=== PATIENT | female | born 1970 | race Caucasian/White ===

== ENCOUNTER 2017-11-06 07:02 | Day surgery (SDC) | payer OTHER ==
[~2017-11-06 07:02] MED LIST: Lactated Ringers 1,000 ML IV SCH
[2017-11-06] MEDS ORDERED: Bupivacaine 0.25%/EPINEPHrine 1:200,000 30 ML SDV ONE (08:19)
[2017-11-06] MEDS ORDERED: Propofol 200 MG/20 ML SDV ONE (08:35)
[2017-11-06] MEDS ORDERED: fentaNYL 100 MCG/2 ML SDV ONE (08:35)
[2017-11-06] MEDS ORDERED: Midazolam 1 MG/ML 2 ML SDV ONE (08:35)
[2017-11-06] MEDS ORDERED: ceFAZolin 1 GM Vial ONE (09:10)
[2017-11-06] MEDS ORDERED: Bacitracin Oint 1 GM U/D Packet ONE (09:10)
[2017-11-06] MEDS ORDERED: Bupivacaine 0.25%/EPINEPHrine 1:200,000 30 ML SDV INJECT ONE (09:19)
--- NOTE | 2017-11-06 12:14 | OR ---
PREOPERATIVE DIAGNOSIS: Bothersome external and internal hemorrhoid, anterior quadrant. PROCEDURE PROPOSED: Excision of external and internal hemorrhoid, anterior quadrant. PROCEDURE DONE: Excision of external and internal hemorrhoid, anterior quadrant. LENS FABRICATING MACHINE TENDER: Haylee Taylor. INDICATION: This is a 47-year-old female bothered with significant external hemorrhoidal tissue with some internal component. It is felt that this was best served with surgical excision. TECHNIQUE: The patient was brought to the operative suite, given some MAC anesthesia per MANAGER CULINARY. The perianal area was then sterilely prepped and draped. After placing her in the lithotomy position, a perianal block was performed with 0.25% Marcaine with epinephrine. The external anal tag was significant externally in the anterior quadrant. Anal inspection revealed no other abnormalities in any other quadrant. There was a small internal component to this external hemorrhoid and I felt with that I would do an elliptical excision of the internal and external hemorrhoid en bloc. A Esquivel retractor was inserted after dilating the anus to 3 fingers. The skin was marked with a skin marker to elliptically excise the redundant tissue. This was performed in an elliptical fashion beginning externally and going internally to incorporate the internal hemorrhoid. This tissue was removed and submitted for pathologic examination. The mucosa was undermined bilaterally to facilitate the closure. The closure was performed by placing 1 subcutaneous suture externally to help bring the tissue back together. I then ran the anal mucosa by reapproximating it with a running 3-0 Vicryl suture beginning internally and bringing it out externally onto the skin. The Esquivel retractor was removed. It looked very good. There was good anal tone and some antibiotic ointment was applied and she was taken back to [facility] in good condition with minimal blood loss. SCM: 11/06/2017 09:21:48 MODL: 11/06/2017 12:04:35 /[id number]
== END 2017-11-06 10:24 | disposition home or self-care (01) ==
LOC: VM.SDS 07:02
PROVIDERS: ATTEND Surgery
DX: K64.4 Residual hemorrhoidal skin tags (principal); K64.8 Other hemorrhoids; F41.9 Anxiety disorder, unspecified; F32.9 Major depressive disorder, single episode, unspecified; G47.00 Insomnia, unspecified; Z98.890 Other specified postprocedural states; Z88.1 Allergy status to other antibiotic agents
CPT/HCPCS: J0690; J2250; J2704; J3010; J7120

== ENCOUNTER 2018-12-04 07:44 | Day surgery (SDC) | payer OTHER ==
[~2018-12-04 07:44] MED LIST changes: +Sodium Chloride 0.9% 10 ML Syringe FLUSH PRN
[2018-12-04] MEDS ORDERED: Propofol 200 MG/20 ML SDV ONE ×2 (08:40→08:41)
[2018-12-04] MEDS ORDERED: fentaNYL 100 MCG/2 ML SDV ONE (08:40)
--- NOTE | 2018-12-04 12:02 | OR ---
PREOPERATIVE DIAGNOSIS: Screening colonoscopy. POSTOPERATIVE DIAGNOSIS: Tiny sigmoid polyp at 15 cm, removed. PROCEDURE PROPOSED: Total flexible colonoscopy. PROCEDURE DONE: Total flexible colonoscopy with cold snare polypectomy x1. INDICATION: This is a 48-year-old female who comes in for her first colonoscopic exam for screening purposes. She denies any symptomatology and she has a negative family history for colon cancer. TECHNIQUE: The patient was brought to the endoscopy suite, placed in left lateral decubitus position. She was sedated per FISH FARM MANAGER with propofol. The flexible video colonoscope was then passed transanally, and under visualization, advanced to the cecum. Examination revealed a normal ascending, transverse, and descending colon. The sigmoid colon was basically normal except at 15 cm, there was a tiny polyp removed with 2 bites of the cold biopsy forceps and submitted for pathologic examination. There were no signs of any diverticulosis or colitis, and the rectum was normal. The scope was then withdrawn. The patient tolerated the procedure well. FINAL IMPRESSION: Tiny sigmoid polyp at 15 cm, removed. PLAN: The patient will be sent a letter with pathology report, which will determine whether she needs a 5 or 10 year followup depending on the type of polyp. SCM: 12/04/2018 09:52:56 MODL: 12/04/2018 11:54:42 /[id number]
--- NOTE | 2018-12-10 08:49 | LETTER ---
12/10/2018 Alannah Perry RE: ALANNAH PERRY : 1970 Dear Alannah: The polyp removed from your colon was an insignificant non-precancerous polyp known as a hyperplastic polyp. This therefore does not increase your risk for any worrisome polyps in the future, but I feel that you should consider having another screening colonoscopy in 10 years' time. Respectfully,
== END 2018-12-04 10:40 | disposition home or self-care (01) ==
LOC: VM.SDS 07:44
PROVIDERS: ATTEND Surgery
DX: Z12.11 Encounter for screening for malignant neoplasm of colon (principal); K63.5 Polyp of colon; D48.5 Neoplasm of uncertain behavior of skin; F32.9 Major depressive disorder, single episode, unspecified; F41.9 Anxiety disorder, unspecified; F17.210 Nicotine dependence, cigarettes, uncomplicated; M62.838 Other muscle spasm; Z13.1 Encounter for screening for diabetes mellitus; Z79.1 Long term (current) use of non-steroidal anti-inflammatories (NSAID); Z79.899 Other long term (current) drug therapy; Z88.1 Allergy status to other antibiotic agents
CPT/HCPCS: 45380; J2704; J3010; J7120